=== PATIENT | female | born 2000 | race African-American/Black ===

== ENCOUNTER 2023-08-17 16:43 | Emergency (ER) | payer BC, OTHER ==
[2023-08-17 17:10] LABS: Pregnancy Test - Urine (BHCG) Negative (Negative); Pregu Control Background? CLEAR/WHITE (CLR/WHITE); Pregu Control Bar Appear? YES (CONTROL BAR); Specific Gravity 1.028 (1.002-1.036)
== END 2023-08-17 17:34 | disposition home or self-care (01) ==
LOC: NAV ERS 16:43
DX: K59.00 Constipation, unspecified (principal)
CPT/HCPCS: 81025; 99284